=== PATIENT | male | born 2005 | race African-American/Black ===

== ENCOUNTER 2025-02-20 13:50 | Emergency (ER) | payer OTHER ==
[~2025-02-20] VITALS: Ht 170.2 cm; Wt 79.0 kg
[2025-02-20 13:52] VITALS: BP 118/73; PULSE 57; RESP 16; TEMP 37; O2SAT 98
[2025-02-20] MEDS ORDERED: BELLADONNA ALK/PHENOBARB 16.2MG/5ML ORAL SYR PO ONE (14:15)
[2025-02-20 14:37] LABS: BASOPHILS % 0.6 % (0.0-2.0); EOSINOPHILS % 0.8 % (0.0-5.0); HEMATOCRIT. 50.0 % (42.0-52.0); HEMOGLOBIN. 16.9 g/dL (14.0-18.0); LYMPHOCYTES % 17.4 % (20.0-50.0); MEAN PLATELET VOLUME 8.4 fl (7.4-10.4); MONOCYTES % 5.5 % (2.0-8.0); NEUTROPHILS % 75.7 % (40.0-76.0); PLATELET 158 x1000/uL (130-400); RED BLOOD CELL COUNT 5.41 mill/uL (4.7-6.1); RED CELL DISTRIBUTION WIDTH 13.1 % (11.6-14.6)
[2025-02-20] MEDS: MAGNESIUM/ALUMINUM HYDROXIDE/SIMETHICONE 30ML UDC PO ONE (14:39)
[2025-02-20] MEDS: DIPHENHYDRAMINE 50MG/ML VIAL IM ONE (14:39)
[2025-02-20] MEDS: ONDANSETRON 4MG ODT PO ONE (14:39)
[2025-02-20] MEDS: HALOPERIDOL LACTATE 5MG/ML VIAL IM ONE (14:39)
[2025-02-20] MEDS: FAMOTIDINE 20MG TABLET PO ONE (14:39)
[2025-02-20 14:54] LABS: CREATININE 1.1 mg/dL (0.6-1.3)
[2025-02-20 14:55] LABS: ETHANOL BLOOD < 10 mg/dL (<10); UREA NITROGEN BLOOD 11 mg/dL (9-23)
[2025-02-20 14:56] LABS: ASPARTATE AMINOTRANSFERASE 25 IU/L (<34)
[2025-02-20 14:57] LABS: BILIRUBIN DIRECT 0.2 mg/dL (<=3.0); BILIRUBIN TOTAL 0.8 mg/dL (0.1-1.0); PROTEIN TOTAL 7.2 g/dL (6.0-8.3)
== END 2025-02-20 15:53 | disposition home or self-care (01) ==
LOC: ER 14:01
DX: R11.2 Nausea with vomiting, unspecified (principal); F12.90 Cannabis use, unspecified, uncomplicated; R10.84 Generalized abdominal pain; E87.8 Other disorders of electrolyte and fluid balance, not elsewhere classified
CPT/HCPCS: 80076; 80048; 80320; 83690; 85025; 36415; 96372; 99284; Q0162; J1200; J1630; G0480